=== PATIENT | female | born 1955 | race Caucasian/White ===

== ENCOUNTER 2019-03-20 07:44 | Day surgery (SDC) | payer OTHER ==
[2019-03-18 11:44] VITALS: BMI 25.9
[2019-03-20] MEDS ORDERED: PROPOFOL 20 ML ONE ×2 (08:20)
[2019-03-20] MEDS ORDERED: LIDOCAINE HCL/PF 2% SDV 5ML VIAL ONE (08:20)
[2019-03-20 10:05] VITALS: TEMP 98.2
[2019-03-20 10:30] VITALS: BP 110/64; PULSE 54
== END 2019-03-20 10:46 | disposition home or self-care (01) ==
LOC: FASU-ENDO 07:44
PROVIDERS: ATTEND Internal Medicine Gastroenterology
PROC: 0DJD8ZZ Inspection of Lower Intestinal Tract, Via Natural or Artificial Opening Endoscopic (ICD-10-PCS; principal; 2019-03-20 09:40)
DX: Z12.11 Encounter for screening for malignant neoplasm of colon (principal); Z80.0 Family history of malignant neoplasm of digestive organs; K57.30 Diverticulosis of large intestine without perforation or abscess without bleeding

== ENCOUNTER 2021-10-10 08:13 | Day surgery (SDC) | payer OTHER ==
[2021-10-05 14:03] VITALS: BMI 25.7
[2021-10-10 09:28] VITALS: TEMP 97.8
[2021-10-10 09:47] VITALS: BP 112/58; PULSE 65
== END 2021-10-10 10:00 | disposition home or self-care (01) ==
LOC: FASU-ENDO 08:13
PROVIDERS: ATTEND Internal Medicine Gastroenterology
PROC: 0DB78ZX Excision of Stomach, Pylorus, Via Natural or Artificial Opening Endoscopic, Diagnostic (ICD-10-PCS; 2021-10-10)
PROC: 0DB98ZX Excision of Duodenum, Via Natural or Artificial Opening Endoscopic, Diagnostic (ICD-10-PCS; principal; 2021-10-10 08:56)
DX: K29.50 Unspecified chronic gastritis without bleeding (principal); R10.13 Epigastric pain
CPT/HCPCS: 88305-TC; 88342-TC